=== PATIENT | female | born 1965 | race Caucasian/White ===

== ENCOUNTER → 2016-09-04 | Outpatient (CLI) | payer MEDICAID | LOC: FIMAGING 12:06 | DX: Z12.31 Encounter for screening mammogram for malignant neoplasm of breast (principal) | CPT/HCPCS: G0202 ==

== ENCOUNTER → 2017-10-03 | Outpatient (CLI) | payer MEDICAID | LOC: FIMAGING 11:47 | DX: Z12.31 Encounter for screening mammogram for malignant neoplasm of breast (principal) ==

== ENCOUNTER → 2018-07-08 | Outpatient (CLI) | payer MEDICAID | LOC: FIMAGING 16:18 | PROVIDERS: ATTEND Internal Medicine | DX: J45.909 Unspecified asthma, uncomplicated (principal); F17.200 Nicotine dependence, unspecified, uncomplicated ==

== ENCOUNTER 2018-11-01 01:31 | Emergency (ER) | payer MEDICAID | END 2018-11-01 07:50 | disposition home or self-care (01) ==